=== PATIENT | female | born 1985 | race Caucasian/White ===

== ENCOUNTER 2021-05-10 12:10 | Emergency (ER) | payer MEDICAID, OTHER ==
[~2021-05-10] VITALS: Ht 182.9 cm; Wt 61.4 kg
[~2021-05-10 12:10] MED LIST: QUET25TA PO
[2021-05-10 12:28] LABS: BASOPHILS % (AUTO) 0.9 % (0.0-2.0); EOSINOPHILS % (AUTO) 1.8 % (1.0-6.0); HEMATOCRIT 42.8 % (36-46); HEMOGLOBIN 14.5 g/dL (12.0-16.0); LYMPHOCYTES # (AUTO) 1.7 K/uL (1.0-4.8); LYMPHOCYTES % (AUTO) 20.2 % (22.0-44.0); MEAN CORPUSCULAR HEMOGLOBIN 31.7 pg (26.0-34.0); MEAN CORPUSCULAR HGB CONC 33.8 G/dL (31.0-37.0); MEAN CORPUSCULAR VOLUME 94 fL (80-100); MONOCYTES # (AUTO) 0.8 K/uL (0.1-1.0); MONOCYTES % (AUTO) 10.1 % (2.0-9.0); NEUTROPHILS # (AUTO) 5.5 K/uL (1.8-7.7); PLATELET COUNT (AUTO) 311 K/uL (150-450); RED BLOOD CELL COUNT(AUTO) 4.57 MIL/uL (4.00-5.20); RED CELL DISTRIBUTION WIDTH 13.3 % (11.5-14.5)
[2021-05-10 12:38] LABS: ANION GAP 7 mmol/L (8-16); CALCIUM, TOTAL 9.1 mg/dL (8.8-10.5); CARBON DIOXIDE 33 mmol/L (22-29); CHLORIDE 103 mmol/L (98-107); GLOMERULAR FILTR. RATE CALC > 60 mL/min (>60); GLUCOSE,RANDOM 80 mg/dL (70-110); POTASSIUM 4.8 mmol/L (3.5-5.1); SODIUM SERUM 143 mmol/L (136-145); UREA NITROGEN, BLOOD 12 mg/dL (7-18)
[2021-05-10 12:44] LABS: ALANINE AMINOTRANSFERASE 56 U/L (12-78); ALBUMIN 3.9 g/dL (3.4-5.0); ALKALINE PHOSPHATASE 89 U/L (46-116); ASPARTATE AMINOTRANSFERASE 26 U/L (15-37); BILIRUBIN,TOTAL 0.2 mg/dL (0.1-1.0); TOTAL PROTEIN, SERUM 7.7 g/dL (6.4-8.2)
[2021-05-10 14:01] LABS: AMPHET/METH SCREEN,URINE POSITIVE (NEGATIVE); BARBITURATE SCREEN, URINE NEGATIVE (NEGATIVE); BENZODIAZEPINES SCREEN,URINE NEGATIVE (NEGATIVE); CANNABINOID SCREEN,URINE NEGATIVE (NEGATIVE); COCAINE SCREEN,URINE NEGATIVE (NEGATIVE); METHADONE SCREEN, URINE NEGATIVE (NEGATIVE); OPIATE SCREEN,URINE NEGATIVE (NEGATIVE); PHENCYCLIDINE SCREEN,URINE NEGATIVE (NEGATIVE)
[2021-05-10] MEDS ORDERED: NICOTINE POLACRILEX 4 MG LOZENGE PO ONE (14:45)
[2021-05-10 16:37] LABS: COVID AG,FIA SOURCE NASOPHARYNGEAL
[2021-05-10 16:44] VITALS: BP 111/76
[2021-05-11] MEDS ORDERED: HYDR-4031 PO (16:04)
[2021-05-11] MEDS ORDERED: PALI410S IM (16:36)
[2021-05-11] MEDS ORDERED: HALO50VI4 IM (16:36)
[2021-05-11] MEDS ORDERED: PALI39DI IM (16:36)
== END 2021-05-10 18:30 | disposition home or self-care (01) ==
LOC: EMS 12:13
DX: F20.9 Schizophrenia, unspecified (principal); F19.90 Other psychoactive substance use, unspecified, uncomplicated; F17.210 Nicotine dependence, cigarettes, uncomplicated; Z20.822 Contact with and (suspected) exposure to COVID-19
CPT/HCPCS: 36415; 80053; 80307; 84703; 85025; 87426; 99285; G0480; Q9967

== ENCOUNTER 2021-05-11 15:39 | Emergency (ER) | payer OTHER ==
[~2021-05-11] VITALS: Ht 182.9 cm; Wt 61.4 kg
[2021-05-11] MEDS ORDERED: HYDR-4031 PO (16:04)
[2021-05-11 16:29] LABS: BASOPHILS % (AUTO) 0.6 % (0.0-2.0); EOSINOPHILS % (AUTO) 0.4 % (1.0-6.0); HEMATOCRIT 42.6 % (36-46); HEMOGLOBIN 14.4 g/dL (12.0-16.0); LYMPHOCYTES # (AUTO) 1.2 K/uL (1.0-4.8); LYMPHOCYTES % (AUTO) 8.9 % (22.0-44.0); MEAN CORPUSCULAR HEMOGLOBIN 31.7 pg (26.0-34.0); MEAN CORPUSCULAR HGB CONC 33.8 G/dL (31.0-37.0); MEAN CORPUSCULAR VOLUME 94 fL (80-100); MONOCYTES % (AUTO) 7.2 % (2.0-9.0); NEUTROPHILS # (AUTO) 11.1 K/uL (1.8-7.7); NEUTROPHILS % (AUTO) 82.9 % (40.0-70.0); PLATELET COUNT (AUTO) 281 K/uL (150-450); RED BLOOD CELL COUNT(AUTO) 4.55 MIL/uL (4.00-5.20); RED CELL DISTRIBUTION WIDTH 13.4 % (11.5-14.5)
[2021-05-11] MEDS ORDERED: PALI410S IM (16:36)
[2021-05-11] MEDS ORDERED: PALI39DI IM (16:36)
[2021-05-11] MEDS ORDERED: HALO50VI4 IM (16:36)
[2021-05-11 16:38] LABS: ANION GAP 10 mmol/L (8-16); CALCIUM, TOTAL 8.8 mg/dL (8.8-10.5); CARBON DIOXIDE 29 mmol/L (22-29); CHLORIDE 103 mmol/L (98-107); CREATININE 0.78 mg/dL (0.60-1.30); GLOMERULAR FILTR. RATE CALC > 60 mL/min (>60); GLUCOSE,RANDOM 90 mg/dL (70-110); POTASSIUM 4.3 mmol/L (3.5-5.1); SODIUM SERUM 142 mmol/L (136-145); UREA NITROGEN, BLOOD 15 mg/dL (7-18)
[2021-05-11 16:45] LABS: ALANINE AMINOTRANSFERASE 53 U/L (12-78); ALBUMIN 3.8 g/dL (3.4-5.0); ALKALINE PHOSPHATASE 90 U/L (46-116); ASPARTATE AMINOTRANSFERASE 22 U/L (15-37); BILIRUBIN,TOTAL 0.4 mg/dL (0.1-1.0); TOTAL PROTEIN, SERUM 7.5 g/dL (6.4-8.2)
[2021-05-11 16:56] LABS: ACETAMINOPHEN < 2 mcg/mL (10-30)
[2021-05-11 18:14] VITALS: BP 105/60
== END 2021-05-11 18:35 | disposition home or self-care (01) ==
LOC: EMS 15:42
DX: F15.10 Other stimulant abuse, uncomplicated (principal); R44.0 Auditory hallucinations
CPT/HCPCS: 36415; 80053; 85025; 99283; G0480; G0481

== ENCOUNTER 2021-06-14 18:18 | Inpatient (IN) | payer MEDICAID, OTHER ==
[~2021-06-14] VITALS: Ht 175.3 cm; Wt 65.1 kg
[~2021-06-14 18:18] MED LIST changes: +HALO50VI4 IM; +HYDR-4031 PO; +PALI39DI IM; +PALI410S IM
[2021-06-14 20:57] LABS: BASOPHILS % (AUTO) 0.6 % (0.0-2.0); EOSINOPHILS % (AUTO) 0.9 % (1.0-6.0); HEMATOCRIT 45.1 % (36-46); HEMOGLOBIN 15.4 g/dL (12.0-16.0); LYMPHOCYTES % (AUTO) 22.2 % (22.0-44.0); MEAN CORPUSCULAR HEMOGLOBIN 31.7 pg (26.0-34.0); MEAN CORPUSCULAR HGB CONC 34.2 G/dL (31.0-37.0); MEAN CORPUSCULAR VOLUME 93 fL (80-100); MONOCYTES # (AUTO) 0.6 K/uL (0.1-1.0); MONOCYTES % (AUTO) 7.2 % (2.0-9.0); NEUTROPHILS # (AUTO) 6.2 K/uL (1.8-7.7); NEUTROPHILS % (AUTO) 69.1 % (40.0-70.0); PLATELET COUNT (AUTO) 296 K/uL (150-450); RED BLOOD CELL COUNT(AUTO) 4.86 MIL/uL (4.00-5.20); RED CELL DISTRIBUTION WIDTH 12.8 % (11.5-14.5)
[2021-06-14 21:11] LABS: ANION GAP 9 mmol/L (8-16); CALCIUM, TOTAL 9.6 mg/dL (8.8-10.5); CARBON DIOXIDE 29 mmol/L (22-29); CHLORIDE 101 mmol/L (98-107); CREATININE 0.81 mg/dL (0.60-1.30); GLOMERULAR FILTR. RATE CALC > 60 mL/min (>60); GLUCOSE,RANDOM 104 mg/dL (70-110); POTASSIUM 4.3 mmol/L (3.5-5.1); SODIUM SERUM 139 mmol/L (136-145); UREA NITROGEN, BLOOD 9 mg/dL (7-18)
[2021-06-14 21:16] LABS: ALANINE AMINOTRANSFERASE 19 U/L (12-78); ALBUMIN 4.1 g/dL (3.4-5.0); ALKALINE PHOSPHATASE 87 U/L (46-116); ASPARTATE AMINOTRANSFERASE 13 U/L (15-37); BILIRUBIN,TOTAL 0.3 mg/dL (0.1-1.0)
[2021-06-14 21:43] LABS: APPEARANCE,URINE CLOUDY (CLEAR); BILIRUBIN,URINE NEGATIVE (NEGATIVE); GLUCOSE, URINE (UA) NEGATIVE (NEGATIVE); KETONES,URINE NEGATIVE (NEGATIVE); LEUKOCYTE ESTERASE ,URINE NEGATIVE (NEGATIVE); NITRATE,URINE POSITIVE (NEGATIVE); OCCULT BLOOD,URINE NEGATIVE (NEGATIVE); PH,URINE 6.5 (5.0-8.0); PROTEIN,URINE NEGATIVE (NEGATIVE); UROBILINOGEN,URINE 0.2 mg/dL (<=1.0)
[2021-06-14 22:05] LABS: BACTERIA,URINE Many /HPF (None Seen); RBC,URINE None Seen /HPF (0-2); RENAL EPITHELIAL CELLS,URINE None Seen /LPF (None Seen); SQUAMOUS EPITHELIAL CELL,UR Moderate /LPF (None Seen); TRANSITIONAL EPI CELLS,URINE None Seen /LPF (None Seen); WBC,URINE 0-2 /HPF (0-5); YEAST,URINE None Seen /HPF (None Seen)
[2021-06-14 22:08] LABS: AMPHET/METH SCREEN,URINE POSITIVE (NEGATIVE); BARBITURATE SCREEN, URINE NEGATIVE (NEGATIVE); BENZODIAZEPINES SCREEN,URINE NEGATIVE (NEGATIVE); CANNABINOID SCREEN,URINE NEGATIVE (NEGATIVE); COCAINE SCREEN,URINE NEGATIVE (NEGATIVE); METHADONE SCREEN, URINE NEGATIVE (NEGATIVE); OPIATE SCREEN,URINE NEGATIVE (NEGATIVE)
[2021-06-14 22:09] LABS: PHENCYCLIDINE SCREEN,URINE NEGATIVE (NEGATIVE)
[2021-06-14] MEDS ORDERED: HALOPERIDOL 5 MG TABLET PO ONE (22:15)
[2021-06-14] MEDS ORDERED: DiphenhydrAMINE HCL 25 MG CAPSULE PO ONE (22:15)
[2021-06-14] MEDS: LORazepam 2 MG TABLET PO PRN (22:31)
[2021-06-14 22:34] LABS: COVID AG,FIA SOURCE NASOPHARYNGEAL
[2021-06-15] MEDS ORDERED: INFLUENZA VIRUS VACCINE QVS 2021-22 (6MO+)/PF 60 MCG/0.5 ML SYRINGE IM. ONE (03:15)
[2021-06-15 10:24] VITALS: BP 126/76
[2021-06-15] MEDS: HALOPERIDOL 5 MG TABLET PO PRN (12:34)
[2021-06-15] MEDS: LORazepam 2 MG TABLET PO PRN (12:35)
[2021-06-15] MEDS: NICOTINE 7 MG/24 HOUR PATCH TD SCH (13:56)
[2021-06-15 16:33] VITALS: BP 120/66
[2021-06-16 01:36] VITALS: BP 111/76
[2021-06-16] MEDS: NICOTINE 7 MG/24 HOUR PATCH TD SCH (08:28)
[2021-06-16 08:38] VITALS: BP 102/66
[2021-06-16] MEDS: CEPHALEXIN MONOHYDRATE 500 MG CAPSULE PO SCH ×2 (13:05→16:17)
[2021-06-16] MEDS: LORazepam 2 MG TABLET PO PRN ×2 (14:17→19:01)
[2021-06-16 16:17] VITALS: BP 106/70
[2021-06-16] MEDS: ZOLPIDEM TARTRATE 10 MG TABLET PO PRN (20:30)
[2021-06-16] MEDS: HALOPERIDOL 10 MG TABLET PO SCH (20:30)
[2021-06-16] MEDS: HALOPERIDOL 5 MG TABLET PO PRN (22:16)
[2021-06-17 01:54] VITALS: BP 102/84
[2021-06-17 08:30] VITALS: BP 122/78
[2021-06-17] MEDS: LORazepam 2 MG TABLET PO PRN ×3 (08:31→22:33)
[2021-06-17] MEDS: CEPHALEXIN MONOHYDRATE 500 MG CAPSULE PO SCH ×3 (08:31→17:24)
[2021-06-17] MEDS: NICOTINE 7 MG/24 HOUR PATCH TD SCH (08:32)
[2021-06-17] MEDS: HALOPERIDOL 5 MG TABLET PO PRN ×2 (08:54→22:33)
[2021-06-17 17:15] VITALS: BP 103/65
[2021-06-17] MEDS: HALOPERIDOL 10 MG TABLET PO SCH (20:00)
[2021-06-17] MEDS: ZOLPIDEM TARTRATE 10 MG TABLET PO PRN (20:56)
[2021-06-18 00:57] VITALS: BP 116/69
[2021-06-18] MEDS: NICOTINE 7 MG/24 HOUR PATCH TD SCH (08:05)
[2021-06-18] MEDS: LORazepam 2 MG TABLET PO PRN ×2 (08:06→17:01)
[2021-06-18] MEDS: HALOPERIDOL 5 MG TABLET PO PRN (08:06)
[2021-06-18] MEDS: CEPHALEXIN MONOHYDRATE 500 MG CAPSULE PO SCH ×3 (08:07→17:00)
[2021-06-18 08:32] VITALS: BP 119/74
[2021-06-18 16:24] VITALS: BP 109/57
[2021-06-18 16:26] VITALS: BP 103/66
[2021-06-18] MEDS: HALOPERIDOL 10 MG TABLET PO SCH (20:07)
[2021-06-18] MEDS: ZOLPIDEM TARTRATE 10 MG TABLET PO PRN (20:54)
[2021-06-19 01:33] VITALS: BP 109/62
[2021-06-19] MEDS: NICOTINE 7 MG/24 HOUR PATCH TD SCH (08:15)
[2021-06-19] MEDS: HALOPERIDOL 5 MG TABLET PO PRN (08:15)
[2021-06-19] MEDS: LORazepam 2 MG TABLET PO PRN (08:16)
[2021-06-19] MEDS: CEPHALEXIN MONOHYDRATE 500 MG CAPSULE PO SCH ×3 (08:16→16:01)
[2021-06-19 08:37] VITALS: BP 123/81
[2021-06-19] MEDS ORDERED: HALO10 PO (15:58)
[2021-06-19] MEDS ORDERED: CEPH500C3 PO (16:00)
[2021-06-19 16:24] VITALS: BP 91/69
== END 2021-06-19 17:05 | disposition home or self-care (01) | DRG 750 ==
LOC: EMS 18:20 → B3A 06-15 01:00
PROVIDERS: ADMIT Psychiatry & Neurology Psychiatry; ATTEND Psychiatry & Neurology Psychiatry
DX: F20.0 Paranoid schizophrenia (principal); Z91.14 Patient's other noncompliance with medication regimen; F15.10 Other stimulant abuse, uncomplicated; Z20.822 Contact with and (suspected) exposure to COVID-19; G47.00 Insomnia, unspecified; K59.00 Constipation, unspecified; N39.0 Urinary tract infection, site not specified; F17.210 Nicotine dependence, cigarettes, uncomplicated; Z28.21 Immunization not carried out because of patient refusal; Z79.899 Other long term (current) drug therapy
CPT/HCPCS: 80053; 80061; 81001; 85025; 87077; 87086; 87186; 99285; G0480

== ENCOUNTER 2023-06-23 17:53 | Inpatient (IN) | payer MEDICAID, OTHER ==
[~2023-06-23] VITALS: Ht 170.2 cm; Wt 60.1 kg
[~2023-06-23 17:53] MED LIST changes: +BENZ1TAB84 PO; +HALO10TA21 PO; -HALO50VI4 IM; -HYDR-4031 PO; -PALI39DI IM; -PALI410S IM; -QUET25TA PO
[2023-06-23 19:23] LABS: BASOPHILS % (AUTO) 0.9 % (0.0-2.0); HEMATOCRIT 42.2 % (36-46); HEMOGLOBIN 14.4 g/dL (12.0-16.0); LYMPHOCYTES # (AUTO) 2.7 K/uL (1.0-4.8); LYMPHOCYTES % (AUTO) 23.5 % (22.0-44.0); MEAN CORPUSCULAR HEMOGLOBIN 31.5 pg (26.0-34.0); MEAN CORPUSCULAR HGB CONC 34.1 G/dL (31.0-37.0); MEAN CORPUSCULAR VOLUME 93 fL (80-100); MONOCYTES # (AUTO) 0.9 K/uL (0.1-1.0); MONOCYTES % (AUTO) 7.5 % (2.0-9.0); NEUTROPHILS # (AUTO) 7.7 K/uL (1.8-7.7); NEUTROPHILS % (AUTO) 66.1 % (40.0-70.0); PLATELET COUNT (AUTO) 267 K/uL (150-450); RED BLOOD CELL COUNT(AUTO) 4.56 MIL/uL (4.00-5.20); RED CELL DISTRIBUTION WIDTH 12.9 % (11.5-14.5); WHITE BLOOD COUNT (AUTO) 11.6 K/uL (4.5-11.0)
[2023-06-23 19:30] LABS: ANION GAP 8 mmol/L (8-16); CALCIUM, TOTAL 9.1 mg/dL (8.8-10.5); CARBON DIOXIDE 27 mmol/L (22-29); CHLORIDE 103 mmol/L (98-107); CREATININE 1.11 mg/dL (0.60-1.30); GLOMERULAR FILTR. RATE CALC 55 mL/min (>60); GLUCOSE,RANDOM 100 mg/dL (70-110); POTASSIUM 4.5 mmol/L (3.5-5.1); SODIUM SERUM 138 mmol/L (136-145); UREA NITROGEN, BLOOD 15 mg/dL (7-18)
[2023-06-23 19:36] LABS: ALCOHOL, BLOOD (SERUM) < 3 mg/dL (0-10)
[2023-06-23 19:45] LABS: ALANINE AMINOTRANSFERASE 19 U/L (12-78); ALBUMIN 4.3 g/dL (3.4-5.0); ALKALINE PHOSPHATASE 74 U/L (46-116); ASPARTATE AMINOTRANSFERASE 13 U/L (15-37); BILIRUBIN,TOTAL 0.3 mg/dL (0.1-1.0); HCG,QUANTITATIVE 1 mIU/mL (0-6); TOTAL PROTEIN, SERUM 8.2 g/dL (6.4-8.2)
[2023-06-23 19:59] LABS: COVID AG,FIA SOURCE NASAL SWAB
[2023-06-23 20:24] LABS: SARS-COV2 (COVID) ANTIGEN,FIA Negative (Negative)
[2023-06-24 02:45] VITALS: BP 92/58; PULSE 79; RESP 18; TEMP 96.9; O2SAT 98
[2023-06-24 03:37] LABS: APPEARANCE,URINE HAZY (CLEAR); BILIRUBIN,URINE NEGATIVE (NEGATIVE); COLOR,URINE YELLOW (YELLOW); GLUCOSE, URINE (UA) NEGATIVE (NEGATIVE); KETONES,URINE NEGATIVE (NEGATIVE); LEUKOCYTE ESTERASE ,URINE NEGATIVE (NEGATIVE); NITRATE,URINE POSITIVE (NEGATIVE); OCCULT BLOOD,URINE NEGATIVE (NEGATIVE); PH,URINE 5.5 (5.0-8.0); PROTEIN,URINE TRACE mg/dL (NEGATIVE); SPECIFIC GRAVITIY, URINE 1.033 (1.003-1.030); UROBILINOGEN,URINE <=1.0 mg/dL (<=1.0)
[2023-06-24 04:15] LABS: BACTERIA,URINE Many /HPF (None Seen); RBC,URINE 0-2 /HPF (0-2); SQUAMOUS EPITHELIAL CELL,UR Few /LPF (None Seen)
[2023-06-24 08:20] VITALS: BP 99/62; PULSE 63; RESP 18; TEMP 97.7; O2SAT 98
[2023-06-24] MEDS ORDERED: ALBUTEROL SULFATE HFA 90 MCG/PUFF 8 GM INHALER IH PRN (15:00)
[2023-06-24] MEDS ORDERED: LOPERAMIDE HCL 2 MG CAPSULE PO PRN (15:00)
[2023-06-24] MEDS ORDERED: MAGNESIUM HYDROXIDE SUSPENSION 30 ML UDCUP PO PRN (15:00)
[2023-06-24] MEDS ORDERED: MAG HYDROX/ALUMINUM HYD/SIMETH ES 30 ML SUSPENSION UDCUP PO PRN (15:00)
[2023-06-24] MEDS ORDERED: BACITRACIN 28 GM OINTMENT TP PRN (15:00)
[2023-06-24] MEDS ORDERED: DOCUSATE SODIUM 100 MG CAPSULE PO PRN (15:00)
[2023-06-24] MEDS ORDERED: BENZOCAINE/MENTHOL LOZENGE PO PRN (15:00)
[2023-06-24] MEDS ORDERED: ONDANSETRON HCL 4 MG TABLET PO PRN (15:00)
[2023-06-24] MEDS ORDERED: OMEPRAZOLE 20 MG CAPSULE PO PRN (15:00)
[2023-06-24] MEDS ORDERED: PETROLATUM,WHITE 28 GM JELLY TP PRN (15:00)
[2023-06-24] MEDS ORDERED: CloNIDine HCL 0.1 MG TABLET PO PRN (15:00)
[2023-06-24] MEDS: NICOTINE 14 MG/24 HOUR PATCH TD SCH (17:14)
[2023-06-24] MEDS: NITROFURANTOIN MONOHYD/M-CRYST 100 MG CAPSULE [MACROBID] PO SCH (17:14)
[2023-06-24] MEDS: RisperiDONE 3 MG TABLET PO SCH (17:14)
[2023-06-24 20:13] VITALS: BP 94/61; PULSE 64; RESP 18; TEMP 97.8; O2SAT 96
[2023-06-24] MEDS: BENZTROPINE MESYLATE 2 MG TABLET PO SCH (20:43)
[2023-06-25 07:28] LABS: HEMOGLOBIN A1C 5.1 % (3.8-5.6)
[2023-06-25 07:46] LABS: FREE T4 (FREE THYROXINE) 0.92 ng/dL (0.76-1.46); THYROID STIMULATING HORMONE 1.37 uIU/mL (0.36-3.74)
[2023-06-25 08:21] VITALS: BP 103/61; PULSE 79; RESP 18; TEMP 97.7; O2SAT 97
[2023-06-25] MEDS: RisperiDONE 3 MG TABLET PO SCH ×2 (08:37→16:31)
[2023-06-25] MEDS: NITROFURANTOIN MONOHYD/M-CRYST 100 MG CAPSULE [MACROBID] PO SCH ×2 (08:37→16:31)
[2023-06-25] MEDS: NICOTINE 14 MG/24 HOUR PATCH TD SCH (08:38)
[2023-06-25 20:12] VITALS: BP 104/64; PULSE 81; RESP 18; TEMP 97.5; O2SAT 97
[2023-06-25] MEDS: HALOPERIDOL 5 MG TABLET PO PRN (21:04)
[2023-06-25] MEDS: ZOLPIDEM TARTRATE 10 MG TABLET PO PRN (21:04)
[2023-06-25] MEDS: BENZTROPINE MESYLATE 2 MG TABLET PO SCH (21:04)
[2023-06-26] MEDS: NITROFURANTOIN MONOHYD/M-CRYST 100 MG CAPSULE [MACROBID] PO SCH ×2 (08:39→16:50)
[2023-06-26] MEDS: NICOTINE 14 MG/24 HOUR PATCH TD SCH (08:39)
[2023-06-26] MEDS: RisperiDONE 3 MG TABLET PO SCH ×2 (08:39→16:50)
[2023-06-26 10:56] VITALS: PULSE 78; RESP 18; TEMP 97.8
[2023-06-26] MEDS: LORazepam 2 MG TABLET PO PRN (14:33)
[2023-06-26 20:06] VITALS: BP 99/61; PULSE 74; RESP 18; TEMP 97.2; O2SAT 97
[2023-06-26] MEDS: ZOLPIDEM TARTRATE 10 MG TABLET PO PRN (20:55)
[2023-06-26] MEDS: BENZTROPINE MESYLATE 2 MG TABLET PO SCH (20:55)
[2023-06-27] MEDS: NITROFURANTOIN MONOHYD/M-CRYST 100 MG CAPSULE [MACROBID] PO SCH ×2 (08:27→17:16)
[2023-06-27] MEDS: RisperiDONE 3 MG TABLET PO SCH ×2 (08:27→17:14)
[2023-06-27] MEDS: LORazepam 2 MG TABLET PO PRN (08:27)
[2023-06-27] MEDS: NICOTINE 14 MG/24 HOUR PATCH TD SCH (08:27)
[2023-06-27] MEDS: IBUPROFEN 600 MG TABLET PO PRN (15:35)
[2023-06-27 15:36] VITALS: BP 112/74; PULSE 78; RESP 18; TEMP 97.8; O2SAT 98
[2023-06-27] MEDS: BENZTROPINE MESYLATE 2 MG TABLET PO SCH (20:42)
[2023-06-27 20:51] VITALS: BP 110/70; PULSE 76; RESP 18; TEMP 97.6
[2023-06-27] MEDS: ZOLPIDEM TARTRATE 10 MG TABLET PO PRN (21:27)
[2023-06-27] MEDS: HALOPERIDOL 5 MG TABLET PO PRN (21:27)
[2023-06-28 06:56] VITALS: BP 118/68; PULSE 82; RESP 18; TEMP 97.8
[2023-06-28] MEDS: HALOPERIDOL 5 MG TABLET PO PRN ×2 (06:58→15:36)
[2023-06-28] MEDS: ACETAMINOPHEN 325 MG TABLET PO PRN (06:59)
[2023-06-28] MEDS: NITROFURANTOIN MONOHYD/M-CRYST 100 MG CAPSULE [MACROBID] PO SCH ×2 (08:52→17:38)
[2023-06-28] MEDS: RisperiDONE 3 MG TABLET PO SCH ×2 (08:52→17:38)
[2023-06-28] MEDS: NICOTINE 14 MG/24 HOUR PATCH TD SCH (08:56)
[2023-06-28 10:26] VITALS: BP 100/60; PULSE 81; RESP 18; TEMP 97.7; O2SAT 99
[2023-06-28 13:27] VITALS: BP 112/65; PULSE 80; RESP 18; TEMP 97.7; O2SAT 99
[2023-06-28] MEDS: IBUPROFEN 600 MG TABLET PO PRN (13:27)
[2023-06-28] MEDS: LORazepam 2 MG TABLET PO PRN (18:24)
[2023-06-28 20:45] VITALS: BP 100/58; PULSE 78; RESP 18; TEMP 98.3; O2SAT 98
[2023-06-28] MEDS: BENZTROPINE MESYLATE 2 MG TABLET PO SCH (21:00)
[2023-06-29] VITALS (7 sets, daily range): BP systolic 95–133; BP diastolic 55–65; PULSE 67–105; RESP 18; TEMP 97.8–98.2; O2SAT 96–100
[2023-06-29] MEDS: ZOLPIDEM TARTRATE 10 MG TABLET PO PRN (01:27)
[2023-06-29] MEDS: ACETAMINOPHEN 325 MG TABLET PO PRN (01:27)
[2023-06-29] MEDS: NICOTINE 14 MG/24 HOUR PATCH TD SCH (08:22)
[2023-06-29] MEDS: RisperiDONE 3 MG TABLET PO SCH ×2 (08:22→16:55)
[2023-06-29] MEDS: NITROFURANTOIN MONOHYD/M-CRYST 100 MG CAPSULE [MACROBID] PO SCH (10:42)
[2023-06-29] MEDS: IBUPROFEN 600 MG TABLET PO PRN ×2 (10:45→16:55)
[2023-06-29] MEDS: HALOPERIDOL 5 MG TABLET PO PRN (14:10)
[2023-06-29] MEDS: BENZTROPINE MESYLATE 2 MG TABLET PO SCH (20:56)
[2023-06-30] MEDS: HALOPERIDOL 5 MG TABLET PO PRN ×3 (01:30→13:32)
[2023-06-30] MEDS: NICOTINE 14 MG/24 HOUR PATCH TD SCH (09:03)
[2023-06-30] MEDS: RisperiDONE 3 MG TABLET PO SCH ×2 (09:03→16:54)
[2023-06-30 09:47] VITALS: BP 101/60; PULSE 79; RESP 18; TEMP 97.6; O2SAT 98
[2023-06-30] MEDS: LORazepam 2 MG TABLET PO PRN (13:33)
[2023-06-30] MEDS: IBUPROFEN 600 MG TABLET PO PRN (15:45)
[2023-06-30] MEDS: BENZTROPINE MESYLATE 2 MG TABLET PO SCH (20:22)
[2023-07-01] MEDS: NICOTINE 14 MG/24 HOUR PATCH TD SCH (08:45)
[2023-07-01] MEDS: RisperiDONE 3 MG TABLET PO SCH ×2 (08:45→16:50)
[2023-07-01] MEDS: IBUPROFEN 600 MG TABLET PO PRN (09:46)
[2023-07-01] MEDS: LORazepam 2 MG TABLET PO PRN (15:41)
[2023-07-01] MEDS: HALOPERIDOL 5 MG TABLET PO PRN (15:42)
[2023-07-01] MEDS: BENZTROPINE MESYLATE 2 MG TABLET PO SCH (21:06)
[2023-07-01] MEDS: ZOLPIDEM TARTRATE 10 MG TABLET PO PRN (21:07)
[2023-07-01 23:22] VITALS: RESP 18
[2023-07-02] MEDS: LORazepam 2 MG TABLET PO PRN ×2 (01:50→22:03)
[2023-07-02] MEDS: HALOPERIDOL 5 MG TABLET PO PRN ×2 (01:50→22:03)
[2023-07-02 04:15] VITALS: BP 128/81; PULSE 19; RESP 19; TEMP 97.8; O2SAT 98
[2023-07-02] MEDS: IBUPROFEN 600 MG TABLET PO PRN ×2 (04:17→11:39)
[2023-07-02 05:17] VITALS: RESP 18
[2023-07-02] MEDS: RisperiDONE 3 MG TABLET PO SCH ×2 (08:43→16:40)
[2023-07-02] MEDS: NICOTINE 14 MG/24 HOUR PATCH TD SCH (08:43)
[2023-07-02 08:46] VITALS: BP 104/55; PULSE 86; RESP 18; TEMP 97; O2SAT 96
[2023-07-02 11:37] VITALS: BP 115/66; PULSE 88; RESP 18
[2023-07-02 12:39] VITALS: RESP 17
[2023-07-02 20:06] VITALS: BP 96/61; PULSE 82; RESP 18; TEMP 98; O2SAT 97
[2023-07-02] MEDS: BENZTROPINE MESYLATE 2 MG TABLET PO SCH (21:11)
[2023-07-02] MEDS: ZOLPIDEM TARTRATE 10 MG TABLET PO PRN (21:11)
[2023-07-03] MEDS: NICOTINE 14 MG/24 HOUR PATCH TD SCH (08:16)
[2023-07-03] MEDS: RisperiDONE 3 MG TABLET PO SCH ×2 (08:16→16:27)
[2023-07-03 09:42] VITALS: BP 110/63; PULSE 83; RESP 18; TEMP 97.7; O2SAT 98
[2023-07-03 10:04] VITALS: RESP 18
[2023-07-03] MEDS: ACETAMINOPHEN 325 MG TABLET PO PRN (10:07)
[2023-07-03 11:07] VITALS: RESP 16
[2023-07-03] MEDS ORDERED: BENZ2TAB71 PO (16:44)
[2023-07-03] MEDS ORDERED: RISP3TAB63 PO (16:45)
== END 2023-07-03 17:30 | disposition home or self-care (01) | DRG 750 ==
LOC: EMS 17:53 → 3EC 06-24 03:37
PROVIDERS: ADMIT Psychiatry & Neurology Psychiatry; ATTEND Psychiatry & Neurology Psychiatry
DX: F25.9 Schizoaffective disorder, unspecified (principal); R45.851 Suicidal ideations; Z20.822 Contact with and (suspected) exposure to COVID-19; F15.10 Other stimulant abuse, uncomplicated; F41.9 Anxiety disorder, unspecified; G47.00 Insomnia, unspecified; K59.00 Constipation, unspecified; N39.0 Urinary tract infection, site not specified; F17.210 Nicotine dependence, cigarettes, uncomplicated; T43.96XA Underdosing of unspecified psychotropic drug, initial encounter; Y92.89 Other specified places as the place of occurrence of the external cause
CPT/HCPCS: 80053; 80061; 81001; 83036; 84439; 84443; 84702; 85025; 87086; 87186; 99285; G0480

== ENCOUNTER 2023-07-19 20:04 | Emergency (ER) | payer MEDICAID ==
[~2023-07-19] VITALS: Ht 170.2 cm; Wt 52.3 kg
[~2023-07-19 20:04] MED LIST changes: -BENZ1TAB84 PO; +BENZ2TAB71 PO; -HALO10TA21 PO; +RISP3TAB63 PO
[2023-07-19 20:23] LABS: BASOPHILS % (AUTO) 0.8 % (0.0-2.0); EOSINOPHILS % (AUTO) 2.2 % (1.0-6.0); HEMATOCRIT 37.6 % (36-46); LYMPHOCYTES # (AUTO) 2.2 K/uL (1.0-4.8); LYMPHOCYTES % (AUTO) 25.2 % (22.0-44.0); MEAN CORPUSCULAR HEMOGLOBIN 32.5 pg (26.0-34.0); MEAN CORPUSCULAR HGB CONC 34.6 G/dL (31.0-37.0); MEAN CORPUSCULAR VOLUME 94 fL (80-100); MONOCYTES # (AUTO) 0.8 K/uL (0.1-1.0); MONOCYTES % (AUTO) 8.8 % (2.0-9.0); NEUTROPHILS # (AUTO) 5.5 K/uL (1.8-7.7); PLATELET COUNT (AUTO) 328 K/uL (150-450); RED CELL DISTRIBUTION WIDTH 14.1 % (11.5-14.5); WHITE BLOOD COUNT (AUTO) 8.8 K/uL (4.5-11.0)
[2023-07-19 20:32] LABS: ANION GAP 9 mmol/L (8-16); CALCIUM, TOTAL 8.9 mg/dL (8.8-10.5); CARBON DIOXIDE 27 mmol/L (22-29); CHLORIDE 102 mmol/L (98-107); CREATININE 0.62 mg/dL (0.60-1.30); GLOMERULAR FILTR. RATE CALC > 60 mL/min (>60); GLUCOSE,RANDOM 90 mg/dL (70-110); POTASSIUM 3.9 mmol/L (3.5-5.1); SODIUM SERUM 138 mmol/L (136-145); UREA NITROGEN, BLOOD 11 mg/dL (7-18)
[2023-07-19 20:37] LABS: ALANINE AMINOTRANSFERASE 20 U/L (12-78); ALKALINE PHOSPHATASE 68 U/L (46-116); ASPARTATE AMINOTRANSFERASE 11 U/L (15-37); BILIRUBIN,TOTAL 0.2 mg/dL (0.1-1.0); TOTAL PROTEIN, SERUM 7.5 g/dL (6.4-8.2)
[2023-07-19 21:04] LABS: ALCOHOL, BLOOD (SERUM) < 3 mg/dL (0-10)
[2023-07-19 21:50] LABS: ALCOHOL, URINE DRUG SCREEN NEGATIVE (NEGATIVE); AMPHET/METH SCREEN,URINE NEGATIVE (NEGATIVE); BARBITURATE SCREEN, URINE NEGATIVE (NEGATIVE); BENZODIAZEPINES SCREEN,URINE NEGATIVE (NEGATIVE); CANNABINOID SCREEN,URINE NEGATIVE (NEGATIVE); COCAINE SCREEN,URINE NEGATIVE (NEGATIVE); METHADONE SCREEN, URINE NEGATIVE (NEGATIVE); OPIATE SCREEN,URINE NEGATIVE (NEGATIVE); PHENCYCLIDINE SCREEN,URINE NEGATIVE (NEGATIVE)
[2023-07-19 22:38] VITALS: BP 125/70; PULSE 96; RESP 16; TEMP 97.8
== END 2023-07-20 00:59 | disposition home or self-care (01) ==
LOC: EMS 20:05
DX: F20.9 Schizophrenia, unspecified (principal); F41.9 Anxiety disorder, unspecified; K59.00 Constipation, unspecified; F32.A Depression, unspecified; F17.210 Nicotine dependence, cigarettes, uncomplicated; F12.90 Cannabis use, unspecified, uncomplicated; F15.90 Other stimulant use, unspecified, uncomplicated
CPT/HCPCS: 99284; 80053; 85025; 36415; 80307; G0480

== ENCOUNTER 2023-08-02 18:30 | Emergency (ER) | payer MEDICAID, OTHER ==
[~2023-08-02] VITALS: Ht 170.2 cm; Wt 63.6 kg
[2023-08-02] MEDS ORDERED: HALO5TAB2 PO (18:54)
[2023-08-02 19:42] VITALS: TEMP 98.3
[2023-08-02 20:59] LABS: BASOPHILS % (AUTO) 0.7 % (0.0-2.0); EOSINOPHILS % (AUTO) 0.3 % (1.0-6.0); HEMATOCRIT 36.6 % (36-46); HEMOGLOBIN 12.5 g/dL (12.0-16.0); LYMPHOCYTES # (AUTO) 1.8 K/uL (1.0-4.8); LYMPHOCYTES % (AUTO) 16.7 % (22.0-44.0); MEAN CORPUSCULAR HEMOGLOBIN 31.9 pg (26.0-34.0); MEAN CORPUSCULAR HGB CONC 34.2 G/dL (31.0-37.0); MEAN CORPUSCULAR VOLUME 93 fL (80-100); MONOCYTES # (AUTO) 0.9 K/uL (0.1-1.0); MONOCYTES % (AUTO) 8.5 % (2.0-9.0); NEUTROPHILS # (AUTO) 7.7 K/uL (1.8-7.7); NEUTROPHILS % (AUTO) 73.8 % (40.0-70.0); PLATELET COUNT (AUTO) 258 K/uL (150-450); RED BLOOD CELL COUNT(AUTO) 3.93 MIL/uL (4.00-5.20); RED CELL DISTRIBUTION WIDTH 13.8 % (11.5-14.5); WHITE BLOOD COUNT (AUTO) 10.5 K/uL (4.5-11.0)
[2023-08-02 21:15] LABS: ANION GAP 8 mmol/L (8-16); CALCIUM, TOTAL 8.8 mg/dL (8.8-10.5); CARBON DIOXIDE 27 mmol/L (22-29); CHLORIDE 108 mmol/L (98-107); CREATININE 0.67 mg/dL (0.60-1.30); GLOMERULAR FILTR. RATE CALC > 60 mL/min (>60); GLUCOSE,RANDOM 115 mg/dL (70-110); POTASSIUM 4.5 mmol/L (3.5-5.1); SODIUM SERUM 143 mmol/L (136-145); UREA NITROGEN, BLOOD 13 mg/dL (7-18)
[2023-08-02 21:20] LABS: ALANINE AMINOTRANSFERASE 29 U/L (12-78); ALBUMIN 3.8 g/dL (3.4-5.0); ALKALINE PHOSPHATASE 62 U/L (46-116); ASPARTATE AMINOTRANSFERASE 12 U/L (15-37); BILIRUBIN,TOTAL 0.2 mg/dL (0.1-1.0); TOTAL PROTEIN, SERUM 6.8 g/dL (6.4-8.2)
[2023-08-02 21:30] VITALS: BP 136/58; PULSE 86; RESP 21
[2023-08-02 21:31] LABS: ALCOHOL, BLOOD (SERUM) < 3 mg/dL (0-10)
[2023-08-02] MEDS ORDERED: LORazepam 2 MG TABLET PO ONE (22:30)
[2023-08-02] MEDS ORDERED: RisperiDONE 1 MG TABLET PO ONE (22:30)
[2023-08-02] MEDS ORDERED: BENZTROPINE MESYLATE 2 MG TABLET PO ONE (22:30)
== END 2023-08-02 23:15 | disposition home or self-care (01) ==
LOC: EMS 18:31
DX: F69 Unspecified disorder of adult personality and behavior (principal); F41.9 Anxiety disorder, unspecified; F32.A Depression, unspecified; F17.210 Nicotine dependence, cigarettes, uncomplicated; F12.90 Cannabis use, unspecified, uncomplicated; F15.90 Other stimulant use, unspecified, uncomplicated; Z86.59 Personal history of other mental and behavioral disorders
CPT/HCPCS: 99284; 80053; 84703; 85025; 36415; G0480

== ENCOUNTER 2023-12-07 05:14 | Inpatient (IN) | payer MEDICAID, OTHER ==
[~2023-12-07] VITALS: Ht 162.6 cm; Wt 56.3 kg
[~2023-12-07 05:14] MED LIST changes: +HALO5TAB2 PO; -RISP3TAB63 PO; +RISP3TAB77 PO
[2023-12-07 05:53] LABS: COVID AG,FIA SOURCE NASAL SWAB
[2023-12-07 05:53] LABS: BASOPHILS % (AUTO) 0.9 % (0.0-2.0); HEMOGLOBIN 14.3 g/dL (12.0-16.0); LYMPHOCYTES # (AUTO) 1.5 K/uL (1.0-4.8); MEAN CORPUSCULAR HEMOGLOBIN 31.7 pg (26.0-34.0); MEAN CORPUSCULAR HGB CONC 34.1 G/dL (31.0-37.0); MEAN CORPUSCULAR VOLUME 93 fL (80-100); MONOCYTES # (AUTO) 0.6 K/uL (0.1-1.0); MONOCYTES % (AUTO) 7.6 % (2.0-9.0); NEUTROPHILS # (AUTO) 5.1 K/uL (1.8-7.7); NEUTROPHILS % (AUTO) 69.5 % (40.0-70.0); PLATELET COUNT (AUTO) 263 K/uL (150-450); RED BLOOD CELL COUNT(AUTO) 4.52 MIL/uL (4.00-5.20); RED CELL DISTRIBUTION WIDTH 13.5 % (11.5-14.5); WHITE BLOOD COUNT (AUTO) 7.3 K/uL (4.5-11.0)
[2023-12-07 05:59] LABS: ANION GAP 9 mmol/L (8-16); CALCIUM, TOTAL 9.2 mg/dL (8.8-10.5); CARBON DIOXIDE 27 mmol/L (22-29); CHLORIDE 102 mmol/L (98-107); CREATININE 0.83 mg/dL (0.60-1.30); GLOMERULAR FILTR. RATE CALC > 60 mL/min (>60); GLUCOSE,RANDOM 100 mg/dL (70-110); POTASSIUM 3.8 mmol/L (3.5-5.1); SODIUM SERUM 138 mmol/L (136-145); UREA NITROGEN, BLOOD 14 mg/dL (7-18)
[2023-12-07 06:03] LABS: PH,URINE DRUG SCREEN 5.5 (5.0-8.0)
[2023-12-07 06:06] LABS: SARS-COV2 (COVID) ANTIGEN,FIA Negative (Negative)
[2023-12-07 06:06] LABS: ALANINE AMINOTRANSFERASE 13 U/L (12-78); ALKALINE PHOSPHATASE 80 U/L (46-116); ASPARTATE AMINOTRANSFERASE 12 U/L (15-37); BILIRUBIN,TOTAL 0.3 mg/dL (0.1-1.0); TOTAL PROTEIN, SERUM 7.8 g/dL (6.4-8.2)
[2023-12-07 06:08] LABS: ALCOHOL, URINE DRUG SCREEN NEGATIVE (NEGATIVE); AMPHET/METH SCREEN,URINE POSITIVE (NEGATIVE); BARBITURATE SCREEN, URINE NEGATIVE (NEGATIVE); BENZODIAZEPINES SCREEN,URINE NEGATIVE (NEGATIVE); CANNABINOID SCREEN,URINE NEGATIVE (NEGATIVE); COCAINE SCREEN,URINE NEGATIVE (NEGATIVE); METHADONE SCREEN, URINE NEGATIVE (NEGATIVE); OPIATE SCREEN,URINE NEGATIVE (NEGATIVE); PHENCYCLIDINE SCREEN,URINE NEGATIVE (NEGATIVE)
[2023-12-07 06:29] LABS: ALBUMIN < 0.6 g/dL (3.4-5.0)
[2023-12-07] MEDS: LORazepam 2 MG/ML VIAL IM ONE (06:32)
[2023-12-07] MEDS: DiphenhydrAMINE HCL 50 MG/ML VIAL IM ONE (06:32)
[2023-12-07] MEDS: HALOPERIDOL LACTATE 5 MG/ML VIAL IM ONE (06:33)
[2023-12-07 06:41] LABS: ALCOHOL, BLOOD (SERUM) < 3 mg/dL (0-10)
[2023-12-07 07:30] LABS: APPEARANCE,URINE CLEAR (CLEAR); BILIRUBIN,URINE NEGATIVE (NEGATIVE); COLOR,URINE YELLOW (YELLOW); GLUCOSE, URINE (UA) NEGATIVE (NEGATIVE); KETONES,URINE TRACE mg/dL (NEGATIVE); LEUKOCYTE ESTERASE ,URINE TRACE (NEGATIVE); NITRATE,URINE NEGATIVE (NEGATIVE); OCCULT BLOOD,URINE NEGATIVE (NEGATIVE); PH,URINE 5.5 (5.0-8.0); PROTEIN,URINE TRACE mg/dL (NEGATIVE); SPECIFIC GRAVITIY, URINE 1.034 (1.003-1.030)
[2023-12-07 07:38] LABS: BACTERIA,URINE Few /HPF (None Seen); RBC,URINE None Seen /HPF (0-2); SQUAMOUS EPITHELIAL CELL,UR Moderate /LPF (None Seen)
[2023-12-07 17:00] VITALS: BP 100/50; PULSE 88; RESP 18; TEMP 97.1; O2SAT 98
[2023-12-07 20:18] VITALS: BP 102/60; PULSE 81; RESP 16; TEMP 97.2; O2SAT 98
[2023-12-07] MEDS ORDERED: BENZOCAINE/MENTHOL LOZENGE PO PRN (20:30)
[2023-12-07] MEDS ORDERED: DOCUSATE SODIUM 100 MG CAPSULE PO PRN (20:30)
[2023-12-07] MEDS ORDERED: LOPERAMIDE HCL 2 MG CAPSULE PO PRN (20:30)
[2023-12-07] MEDS ORDERED: MAGNESIUM HYDROXIDE SUSPENSION 30 ML UDCUP PO PRN (20:30)
[2023-12-07] MEDS ORDERED: ALBUTEROL SULFATE HFA 90 MCG/PUFF 8 GM INHALER IH PRN (20:30)
[2023-12-07] MEDS ORDERED: ACETAMINOPHEN 325 MG TABLET PO PRN (20:30)
[2023-12-07] MEDS ORDERED: CloNIDine HCL 0.1 MG TABLET PO PRN (20:30)
[2023-12-07] MEDS ORDERED: ONDANSETRON HCL 4 MG TABLET PO PRN (20:30)
[2023-12-07] MEDS ORDERED: IBUPROFEN 600 MG TABLET PO PRN (20:30)
[2023-12-07] MEDS ORDERED: BACITRACIN 28 GM OINTMENT TP PRN (20:30)
[2023-12-07] MEDS ORDERED: OMEPRAZOLE 20 MG CAPSULE PO PRN (20:30)
[2023-12-07] MEDS ORDERED: PETROLATUM,WHITE 28 GM JELLY TP PRN (20:30)
[2023-12-07] MEDS ORDERED: MAG HYDROX/ALUMINUM HYD/SIMETH ES 30 ML SUSPENSION UDCUP PO PRN (20:30)
[2023-12-07] MEDS: ZOLPIDEM TARTRATE 10 MG TABLET PO PRN (23:24)
[2023-12-08] MEDS: NICOTINE 21 MG/24 HOUR PATCH TD SCH (08:30)
[2023-12-08] MEDS: RisperiDONE 3 MG TABLET PO SCH (13:04)
[2023-12-08 17:24] VITALS: BP 108/68; PULSE 87; RESP 20; TEMP 98.5; O2SAT 100
[2023-12-08] MEDS: LORazepam 2 MG TABLET PO PRN (19:26)
[2023-12-08] MEDS: HALOPERIDOL 5 MG TABLET PO PRN (20:44)
[2023-12-08 20:47] VITALS: BP 100/60; PULSE 87; RESP 18; TEMP 97; O2SAT 97
[2023-12-09 08:48] VITALS: BP 100/63; PULSE 78; RESP 16; TEMP 98.6; O2SAT 100
[2023-12-09 20:54] VITALS: BP 115/65; PULSE 92; RESP 18; TEMP 98; O2SAT 99
[2023-12-10 08:15] VITALS: RESP 14
== END 2023-12-10 18:41 | disposition home or self-care (01) | DRG 750 ==
LOC: EMS 05:14 → B3A 16:01
PROVIDERS: ADMIT Psychiatry & Neurology Psychiatry; ATTEND Psychiatry & Neurology Psychiatry
DX: F25.9 Schizoaffective disorder, unspecified (principal); F15.10 Other stimulant abuse, uncomplicated; F41.9 Anxiety disorder, unspecified; G47.00 Insomnia, unspecified; F17.210 Nicotine dependence, cigarettes, uncomplicated; K59.00 Constipation, unspecified; Z20.822 Contact with and (suspected) exposure to COVID-19; Z91.199 Patient's noncompliance with other medical treatment and regimen due to unspecified reason
CPT/HCPCS: 80053; 80307; 81001; 84703; 85025; 99285; G0480; J1200; J1630; J2060

== ENCOUNTER 2024-01-22 07:41 | Inpatient (IN) | payer MEDICAID, OTHER ==
[~2024-01-22] VITALS: Ht 170.2 cm; Wt 59.4 kg
[~2024-01-22 07:41] MED LIST changes: -BENZ2TAB71 PO; -HALO5TAB2 PO; +MIRT-89 PO
[2024-01-22 08:09] LABS: BASOPHILS % (AUTO) 0.5 % (0.0-2.0); EOSINOPHILS % (AUTO) 1.3 % (1.0-6.0); HEMATOCRIT 42.6 % (36-46); HEMOGLOBIN 14.5 g/dL (12.0-16.0); LYMPHOCYTES # (AUTO) 2.5 K/uL (1.0-4.8); LYMPHOCYTES % (AUTO) 23.5 % (22.0-44.0); MEAN CORPUSCULAR HEMOGLOBIN 31.6 pg (26.0-34.0); MEAN CORPUSCULAR HGB CONC 33.9 G/dL (31.0-37.0); MEAN CORPUSCULAR VOLUME 93 fL (80-100); MONOCYTES # (AUTO) 0.8 K/uL (0.1-1.0); MONOCYTES % (AUTO) 7.8 % (2.0-9.0); NEUTROPHILS # (AUTO) 7.1 K/uL (1.8-7.7); NEUTROPHILS % (AUTO) 66.9 % (40.0-70.0); PLATELET COUNT (AUTO) 284 K/uL (150-450); RED BLOOD CELL COUNT(AUTO) 4.57 MIL/uL (4.00-5.20); RED CELL DISTRIBUTION WIDTH 13.3 % (11.5-14.5); WHITE BLOOD COUNT (AUTO) 10.7 K/uL (4.5-11.0)
[2024-01-22 08:14] LABS: COVID AG,FIA SOURCE NASAL SWAB
[2024-01-22 08:19] LABS: ANION GAP 6 mmol/L (8-16); CALCIUM, TOTAL 9.4 mg/dL (8.8-10.5); CARBON DIOXIDE 31 mmol/L (22-29); CHLORIDE 104 mmol/L (98-107); CREATININE 0.73 mg/dL (0.60-1.30); GLOMERULAR FILTR. RATE CALC > 60 mL/min (>60); GLUCOSE,RANDOM 93 mg/dL (70-110); POTASSIUM 3.9 mmol/L (3.5-5.1); SODIUM SERUM 141 mmol/L (136-145); UREA NITROGEN, BLOOD 16 mg/dL (7-18)
[2024-01-22 08:27] LABS: ALCOHOL, BLOOD (SERUM) < 3 mg/dL (0-10); LITHIUM < 0.20 mmol/L (0.60-1.20)
[2024-01-22 08:30] LABS: HCG,QUANTITATIVE < 1 mIU/mL (0-6)
[2024-01-22 08:34] LABS: SARS-COV2 (COVID) ANTIGEN,FIA Negative (Negative)
[2024-01-22] MEDS: HALOPERIDOL 5 MG TABLET PO ONE (08:55)
[2024-01-22] MEDS: LORazepam 1 MG TABLET PO ONE (08:55)
[2024-01-22 22:15] VITALS: BP 109/59; PULSE 63; RESP 18; TEMP 97.3; O2SAT 100
[2024-01-23 08:20] VITALS: RESP 16
[2024-01-23] MEDS: HALOPERIDOL 5 MG TABLET PO PRN (08:38)
[2024-01-23] MEDS: LORazepam 2 MG TABLET PO PRN (08:38)
[2024-01-23] MEDS ORDERED: LOPERAMIDE HCL 2 MG CAPSULE PO PRN (09:00)
[2024-01-23] MEDS ORDERED: ONDANSETRON HCL 4 MG TABLET PO PRN (09:00)
[2024-01-23] MEDS ORDERED: MAG HYDROX/ALUMINUM HYD/SIMETH ES 30 ML SUSPENSION UDCUP PO PRN (09:00)
[2024-01-23] MEDS ORDERED: MAGNESIUM HYDROXIDE SUSPENSION 30 ML UDCUP PO PRN (09:00)
[2024-01-23] MEDS ORDERED: PETROLATUM,WHITE 28 GM JELLY TP PRN (09:00)
[2024-01-23] MEDS ORDERED: DOCUSATE SODIUM 100 MG CAPSULE PO PRN (09:00)
[2024-01-23] MEDS ORDERED: ACETAMINOPHEN 325 MG TABLET PO PRN (09:00)
[2024-01-23] MEDS ORDERED: ALBUTEROL SULFATE HFA 90 MCG/PUFF 8 GM INHALER IH PRN (09:00)
[2024-01-23] MEDS ORDERED: BACITRACIN 28 GM OINTMENT TP PRN (09:00)
[2024-01-23] MEDS ORDERED: CloNIDine HCL 0.1 MG TABLET PO PRN (09:00)
[2024-01-23] MEDS ORDERED: OMEPRAZOLE 20 MG CAPSULE PO PRN (09:00)
[2024-01-23] MEDS ORDERED: BENZOCAINE/MENTHOL LOZENGE PO PRN (09:00)
[2024-01-24] MEDS: RisperiDONE 3 MG TABLET PO SCH (07:59)
[2024-01-24 09:09] VITALS: BP 105/66; PULSE 74; RESP 17; TEMP 97.8; O2SAT 97
[2024-01-24 16:00] VITALS: RESP 18
[2024-01-24] MEDS: IBUPROFEN 600 MG TABLET PO PRN (16:09)
[2024-01-24 20:58] VITALS: BP 100/78; PULSE 77; RESP 17; TEMP 98; O2SAT 100
[2024-01-25 08:17] VITALS: RESP 16
[2024-01-25 20:08] VITALS: BP 101/58; PULSE 70; RESP 16; TEMP 97.8; O2SAT 98
[2024-01-26 08:10] VITALS: RESP 16
[2024-01-26 20:09] VITALS: BP 105/64; PULSE 80; RESP 17; TEMP 97.7; O2SAT 97
[2024-01-26] MEDS: ZOLPIDEM TARTRATE 10 MG TABLET PO PRN (20:55)
[2024-01-27 08:10] VITALS: RESP 16
== END 2024-01-27 21:40 | disposition home or self-care (01) | DRG 750 ==
LOC: EMS 07:41 → EDUNIT# 07:41 → B3A 16:39
PROVIDERS: ADMIT Psychiatry & Neurology Psychiatry; ATTEND Psychiatry & Neurology Psychiatry
DX: F20.9 Schizophrenia, unspecified (principal); F15.10 Other stimulant abuse, uncomplicated; Z20.822 Contact with and (suspected) exposure to COVID-19; F17.200 Nicotine dependence, unspecified, uncomplicated; F41.9 Anxiety disorder, unspecified; G47.00 Insomnia, unspecified; K59.00 Constipation, unspecified; Z91.199 Patient's noncompliance with other medical treatment and regimen due to unspecified reason
CPT/HCPCS: 80048; 80178; 84702; 85025; 87081; 99285; G0480